=== PATIENT | female | born 1970 | race Caucasian/White ===

== ENCOUNTER 2021-08-10 07:22 | Inpatient (IN) | payer BC ==
[2021-08-10] MEDS ORDERED: Acetaminophen 325 MG Tab PO PRN (09:35)
[2021-08-10] MEDS ORDERED: Ondansetron 4 MG/2 ML SDV IVPUSH PRN (09:35)
[2021-08-10] MEDS ORDERED: Sodium Chloride 0.9% 10 ML Syringe FLUSH PRN (09:35)
[2021-08-10 10:47] LABS: HEMOGLOBIN A1C 6.1 % (4.5-6.2)
[2021-08-10] MEDS ORDERED: MVI, Adult with Vitamin K 10 ML, Thiamine 200 MG, Zinc/Copper/Manganese/Selenium 1 ML i... IV ONE ×4 (11:00)
[2021-08-10] MEDS: Pantoprazole 40 MG Vial IVPUSH SCH (11:09)
[2021-08-10] MEDS: HYDROmorphone 0.5 MG/0.5 ML Syringe IVPUSH PRN ×4 (11:19→20:53)
[2021-08-10] MEDS: Dextrose 5%-Lactated Ringers 1,000 ML IV SCH (13:34)
[2021-08-11] MEDS: Dextrose 5%-Lactated Ringers 1,000 ML IV SCH ×2 (00:29→21:18)
[2021-08-11] MEDS: HYDROmorphone 0.5 MG/0.5 ML Syringe IVPUSH PRN ×2 (00:34→07:25)
[2021-08-11] MEDS ORDERED: Bupivacaine 0.5% 50 ML MDV ONE ×2 (06:57→06:58)
[2021-08-11] MEDS ORDERED: Meropenem 500 MG SDV ONE (06:57)
[2021-08-11] MEDS ORDERED: Lidocaine 1% with EPINEPHrine 1:100,000 50 ML MDV ONE (06:58)
[2021-08-11] MEDS ORDERED: Propofol 200 MG/20 ML SDV ONE (07:59)
[2021-08-11] MEDS ORDERED: Succinylcholine 200 MG/10 ML MDV ONE (07:59)
[2021-08-11] MEDS ORDERED: Rocuronium 50 MG/5 ML Vial ONE (07:59)
[2021-08-11] MEDS ORDERED: Ondansetron 4 MG/2 ML SDV ONE (07:59)
[2021-08-11] MEDS ORDERED: Glycopyrrolate 0.2 MG/ML 5 ML MDV ONE (07:59)
[2021-08-11] MEDS ORDERED: Neostigmine Methylsulfate 1 MG/ML 5 ML Syringe ONE (07:59)
[2021-08-11] MEDS ORDERED: Dexamethasone 4 MG/ML SDV ONE (07:59)
[2021-08-11] MEDS ORDERED: fentaNYL 250 MCG/5 ML SDV ONE ×2 (08:00→10:13)
[2021-08-11] MEDS: Pantoprazole 40 MG Vial IVPUSH SCH (09:49)
[2021-08-11] MEDS ORDERED: Ropivacaine 44 ML, dexAMETHasone 8 MG, EPINEPHrine 0.4 MG, Sodium Chloride 0.9% 33.6 ML NERVRT SCH ×4 (10:00)
[2021-08-11] MEDS ORDERED: cefOXitin 2 GM in Sodium Chloride 0.9% 50 ML IV ONE (10:00)
[2021-08-11] MEDS ORDERED: Ketamine 17 MG in Sodium Chloride 0.9% 19.83 ML IV SCH (10:00)
[2021-08-11] MEDS ORDERED: Ketamine 500 MG/5 ML MDV IV SCH ×3 (10:00)
[2021-08-11] MEDS ORDERED: diphenhydrAMINE 25 MG Cap PO PRN (11:12)
[2021-08-11] MEDS ORDERED: Ondansetron 4 MG/2 ML SDV IVPUSH PRN ×2 (11:12→13:00)
[2021-08-11] MEDS ORDERED: diphenhydrAMINE 50 MG/ML SDV IVPUSH PRN (11:12)
[2021-08-11] MEDS ORDERED: Naloxone 0.4 MG/ML SDV IVPUSH PRN (11:12)
[2021-08-11] MEDS: HYDROmorphone/Normal Saline 6 MG/30 ML PCA Vial IV PRN ×2 (11:28→23:11)
[2021-08-11] MEDS ORDERED: Lactated Ringers 1,000 ML ONE (11:35)
[2021-08-11] MEDS ORDERED: Naloxone 0.4 MG/ML SDV IV PRN (12:00)
[2021-08-11] MEDS ORDERED: Cyclobenzaprine 10 MG Tab PO PRN (12:51)
[2021-08-11] MEDS ORDERED: Labetalol 20 MG/4 ML Syringe IVPUSH PRN (13:00)
[2021-08-11] MEDS ORDERED: Metoclopramide 10 MG/2 ML SDV IVPUSH PRN (13:00)
[2021-08-11] MEDS ORDERED: hydrOXYzine HCL 100 MG/2 ML SDV IM PRN (13:00)
[2021-08-11] MEDS ORDERED: Acetaminophen 500 MG Tab PO PRN (13:00)
[2021-08-11] MEDS: Sodium Ferric Gluconate Cmplex 250 MG in Sodium Chloride 0.9% 100 ML IV SCH (14:34)
[2021-08-11] MEDS: Acetaminophen 500 MG Tab PO SCH ×2 (14:43→21:49)
[2021-08-11] MEDS: cefOXitin 2 GM in Sodium Chloride 0.9% 50 ML IV SCH ×2 (16:49→21:48)
[2021-08-11] MEDS ORDERED: MVI, Adult with Vitamin K 10 ML, Thiamine 200 MG, Zinc/Copper/Manganese/Selenium 1 ML i... IV SCH ×4 (18:00)
[2021-08-12] MEDS: Dextrose 5%-Lactated Ringers 1,000 ML IV SCH ×2 (03:36→14:23)
[2021-08-12] MEDS ORDERED: Iopamidol 612 MG/ML 50 ML SDV PO STA (03:39)
[2021-08-12] MEDS: cefOXitin 2 GM in Sodium Chloride 0.9% 50 ML IV SCH ×4 (03:40→21:06)
[2021-08-12] MEDS: Acetaminophen 500 MG Tab PO SCH ×3 (05:01→21:02)
[2021-08-12] MEDS: Docusate Sodium 100 MG Cap PO SCH ×2 (09:34→21:02)
[2021-08-12] MEDS: Bisacodyl 5 MG Tab PO SCH ×2 (09:34→21:02)
[2021-08-12] MEDS: Pantoprazole 40 MG Vial IVPUSH SCH (09:35)
[2021-08-12] MEDS: Celecoxib 200 MG Cap PO SCH ×2 (09:35→21:02)
[2021-08-12] MEDS: Magnesium Sulfate/Water 2 GM in Premix Bag 1 BAG IV SCH ×3 (10:31→21:49)
[2021-08-12] MEDS: HYDROmorphone/Normal Saline 6 MG/30 ML PCA Vial IV PRN (12:44)
[2021-08-12] MEDS: Sodium Ferric Gluconate Cmplex 250 MG in Sodium Chloride 0.9% 100 ML IV SCH (14:39)
[2021-08-12] MEDS: diphenhydrAMINE 50 MG/ML SDV IVPUSH PRN ×2 (17:17→21:49)
[2021-08-12] MEDS ORDERED: MVI, Adult with Vitamin K 10 ML, Thiamine 200 MG, Zinc/Copper/Manganese/Selenium 1 ML i... IV SCH ×4 (18:00)
[2021-08-13] MEDS: cefOXitin 2 GM in Sodium Chloride 0.9% 50 ML IV SCH ×2 (04:11→10:07)
[2021-08-13] MEDS: Magnesium Sulfate/Water 2 GM in Premix Bag 1 BAG IV SCH ×3 (04:53→17:38)
[2021-08-13] MEDS: Dextrose 5%-Lactated Ringers 1,000 ML IV SCH (04:56)
[2021-08-13] MEDS: Acetaminophen 500 MG Tab PO SCH ×3 (05:01→21:44)
[2021-08-13] MEDS: HYDROmorphone 2 MG Tab PO PRN ×3 (08:07→21:45)
[2021-08-13] MEDS: Bisacodyl 5 MG Tab PO SCH ×2 (08:10→20:07)
[2021-08-13] MEDS: Celecoxib 200 MG Cap PO SCH ×2 (08:10→20:07)
[2021-08-13] MEDS: Docusate Sodium 100 MG Cap PO SCH ×2 (08:10→20:07)
[2021-08-13] MEDS: Pantoprazole 40 MG Vial IVPUSH SCH (08:11)
[2021-08-13] MEDS ORDERED: Cyanocobalamin (Vitamin B12) 1,000 MCG/ML SDV IM ONE (09:00)
[2021-08-13] MEDS ORDERED: Sodium Ferric Gluconate Cmplex 250 MG in Sodium Chloride 0.9% 100 ML IV SCH (10:00)
[2021-08-13] MEDS: Magnesium Hydroxide 400 MG/5 ML Susp 30 ML Cup PO SCH (10:08)
[2021-08-14] MEDS: Acetaminophen 500 MG Tab PO SCH (05:16)
[2021-08-14] MEDS: Celecoxib 200 MG Cap PO SCH (09:09)
[2021-08-14] MEDS: Bisacodyl 5 MG Tab PO SCH (09:09)
[2021-08-14] MEDS: Docusate Sodium 100 MG Cap PO SCH (09:11)
[2021-08-14] MEDS: Pantoprazole 40 MG Vial IVPUSH SCH (09:12)
[2021-08-14] MEDS: Magnesium Hydroxide 400 MG/5 ML Susp 30 ML Cup PO SCH (09:13)
== END 2021-08-14 09:15 | disposition home or self-care (01) | DRG 221 ==
LOC: JP.2SS 08:34
PROVIDERS: ADMIT Surgery; ATTEND Surgery
PROC: 0DBF0ZZ Excision of Right Large Intestine, Open Approach (ICD-10-PCS; principal; 2021-08-11)
PROC: 0WUF0JZ Supplement Abdominal Wall with Synthetic Substitute, Open Approach (ICD-10-PCS; 2021-08-11)
PROC: 3E0M05Z Introduction of Adhesion Barrier into Peritoneal Cavity, Open Approach (ICD-10-PCS; 2021-08-11)
PROC: 0DS80ZZ Reposition Small Intestine, Open Approach (ICD-10-PCS; 2021-08-11)
DX: K95.89 Other complications of other bariatric procedure (principal); K56.2 Volvulus; K55.039 Acute (reversible) ischemia of large intestine, extent unspecified; K43.0 Incisional hernia with obstruction, without gangrene; Z98.84 Bariatric surgery status
CPT/HCPCS: 36415; 74019; 74019-26; 74240; 74240-26; 80053; 82306; 82525; 82607; 82728; 82746; 83036; 83735; 83880; 84100; 84590; 84630; 85025; 88307; A9270-GY; C9113; J0171; J0330; J0694; J1100; J1170; J1200; J2020; J2185; J2405; J2704; J2710; J2795; J2916; J3010; J3411; J3420; J3475; J3490; J7120; J7121; Q9967

== ENCOUNTER 2021-10-16 08:52 | Inpatient (IN) | payer BC ==
[~2021-10-16 08:52] MED LIST: Bupivacaine 0.5% 30 ML SDV ONE; Dextrose 5%-Lactated Ringers 1,000 ML IV SCH; Lidocaine 1% with EPINEPHrine 1:100,000 50 ML MDV ONE; Meropenem 500 MG SDV ONE
[2021-10-16] MEDS ORDERED: Acetaminophen 500 MG Tab PO ONE (09:00)
[2021-10-16] MEDS ORDERED: cefOXitin 2 GM in Sodium Chloride 0.9% 50 ML IV ONE ×2 (09:00→09:15)
[2021-10-16] MEDS ORDERED: cefOXitin 2 GM in Sodium Chloride 0.9% 100 ML IV ONE (09:00)
[2021-10-16] MEDS ORDERED: Ketamine 17 MG in Sodium Chloride 0.9% 19.83 ML IV SCH (09:15)
[2021-10-16] MEDS ORDERED: Ketamine 500 MG/5 ML MDV IV SCH (09:15)
[2021-10-16 09:41] LABS: ESTIMATED GFR 89 mL/min (>60)
[2021-10-16] MEDS ORDERED: fentaNYL 250 MCG/5 ML SDV ONE ×2 (11:00→13:25)
[2021-10-16] MEDS ORDERED: Dexamethasone 4 MG/ML SDV ONE (11:01)
[2021-10-16] MEDS ORDERED: Rocuronium 50 MG/5 ML Vial ONE (11:01)
[2021-10-16] MEDS ORDERED: Glycopyrrolate 0.2 MG/ML 5 ML MDV ONE (11:01)
[2021-10-16] MEDS ORDERED: Neostigmine Methylsulfate 1 MG/ML 5 ML Syringe ONE (11:01)
[2021-10-16] MEDS ORDERED: Propofol 200 MG/20 ML SDV ONE (11:01)
[2021-10-16] MEDS ORDERED: Ondansetron 4 MG/2 ML SDV ONE (11:01)
[2021-10-16] MEDS ORDERED: Succinylcholine 200 MG/10 ML MDV ONE (11:01)
[2021-10-16] MEDS ORDERED: Lactated Ringers 1,000 ML ONE (13:51)
[2021-10-16] MEDS ORDERED: fentaNYL 100 MCG/2 ML SDV ONE (14:31)
[2021-10-16] MEDS ORDERED: diphenhydrAMINE 50 MG/ML SDV IVPUSH PRN ×2 (14:40→16:00)
[2021-10-16] MEDS ORDERED: Ondansetron 4 MG/2 ML SDV IVPUSH PRN ×2 (14:40→16:00)
[2021-10-16] MEDS ORDERED: Naloxone 0.4 MG/ML SDV IVPUSH PRN (14:40)
[2021-10-16] MEDS ORDERED: diphenhydrAMINE 25 MG Cap PO PRN (14:40)
[2021-10-16] MEDS: HYDROmorphone/Normal Saline 6 MG/30 ML PCA Vial IV PRN (14:48)
[2021-10-16] MEDS ORDERED: Naloxone 0.4 MG/ML SDV IV PRN (15:00)
[2021-10-16] MEDS ORDERED: Cyclobenzaprine 10 MG Tab PO PRN (15:33)
[2021-10-16] MEDS ORDERED: Metoclopramide 10 MG/2 ML SDV IVPUSH PRN (16:00)
[2021-10-16] MEDS ORDERED: hydrOXYzine HCL 100 MG/2 ML SDV IM PRN (16:00)
[2021-10-16] MEDS ORDERED: Acetaminophen 500 MG Tab PO PRN (16:00)
[2021-10-16] MEDS ORDERED: Labetalol 20 MG/4 ML Syringe IVPUSH PRN (16:00)
[2021-10-16] MEDS: MVI, Adult with Vitamin K 10 ML, Thiamine 200 MG, Zinc/Copper/Manganese/Selenium 1 ML i... IV SCH ×4 (17:17)
[2021-10-16] MEDS: Acetaminophen 500 MG Tab PO SCH ×2 (17:17→23:17)
[2021-10-16] MEDS: Pantoprazole 40 MG Vial IVPUSH SCH (17:17)
[2021-10-16] MEDS: cefOXitin 2 GM in Sodium Chloride 0.9% 50 ML IV SCH (18:03)
[2021-10-16] MEDS: Dextrose 5%-Lactated Ringers 1,000 ML IV SCH (23:29)
[2021-10-17] MEDS: cefOXitin 2 GM in Sodium Chloride 0.9% 50 ML IV SCH ×4 (00:49→17:41)
[2021-10-17] MEDS: Dextrose 5%-Lactated Ringers 1,000 ML IV SCH ×2 (05:34→11:59)
[2021-10-17] MEDS: HYDROmorphone/Normal Saline 6 MG/30 ML PCA Vial IV PRN (06:14)
[2021-10-17] MEDS: Acetaminophen 500 MG Tab PO SCH ×2 (08:24→15:11)
[2021-10-17] MEDS: Celecoxib 200 MG Cap PO SCH ×2 (08:25→20:22)
[2021-10-17] MEDS: Bisacodyl 5 MG Tab PO SCH ×2 (10:24→20:22)
[2021-10-17] MEDS: Docusate Sodium 100 MG Cap PO SCH ×2 (10:24→20:22)
[2021-10-17] MEDS: MVI, Adult with Vitamin K 10 ML, Thiamine 200 MG, Zinc/Copper/Manganese/Selenium 1 ML i... IV SCH ×4 (15:10)
[2021-10-17] MEDS: Pantoprazole 40 MG Vial IVPUSH SCH (15:11)
[2021-10-18] MEDS: Acetaminophen 500 MG Tab PO SCH ×3 (00:10→16:48)
[2021-10-18] MEDS: cefOXitin 2 GM in Sodium Chloride 0.9% 50 ML IV SCH (00:11)
[2021-10-18] MEDS: Dextrose 5%-Lactated Ringers 1,000 ML IV SCH (03:02)
[2021-10-18] MEDS ORDERED: Bupivacaine 0.5% 30 ML SDV ONE (06:42)
[2021-10-18] MEDS ORDERED: Lidocaine 1% with EPINEPHrine 1:100,000 50 ML MDV ONE (06:42)
[2021-10-18] MEDS ORDERED: Meropenem 500 MG SDV ONE (06:51)
[2021-10-18] MEDS ORDERED: Propofol 200 MG/20 ML SDV ONE ×3 (06:55→08:04)
[2021-10-18] MEDS ORDERED: Midazolam 1 MG/ML 2 ML SDV ONE (07:15)
[2021-10-18] MEDS ORDERED: fentaNYL 100 MCG/2 ML SDV ONE (07:16)
[2021-10-18] MEDS ORDERED: Ropivacaine 40 ML, dexAMETHasone 8 MG, EPINEPHrine 0.4 MG, Sodium Chloride 0.9% 37.6 ML NERVRT SCH ×4 (07:30)
[2021-10-18] MEDS ORDERED: Cyanocobalamin (Vitamin B12) 1,000 MCG/ML SDV IM ONE (09:00)
[2021-10-18] MEDS: Celecoxib 200 MG Cap PO SCH ×2 (09:16→20:54)
[2021-10-18] MEDS: Bisacodyl 5 MG Tab PO SCH (09:16)
[2021-10-18] MEDS: Docusate Sodium 100 MG Cap PO SCH (09:16)
[2021-10-18] MEDS: Pantoprazole 40 MG Tab.CR PO SCH (12:57)
[2021-10-18] MEDS ORDERED: oxyCODONE 5 MG Tab PO PRN (13:12)
[2021-10-19] MEDS: Acetaminophen 500 MG Tab PO SCH ×2 (00:39→07:40)
[2021-10-19] MEDS: Pantoprazole 40 MG Tab.CR PO SCH (07:40)
[2021-10-19] MEDS: Celecoxib 200 MG Cap PO SCH (09:38)
== END 2021-10-19 10:05 | disposition home or self-care (01) | DRG 221 ==
LOC: JP.SDSSCHI 08:52 → JP.SDS 08:53 → EDSTATUS 09:30 → JP.MS 16:15
PROVIDERS: ADMIT Surgery; ATTEND Surgery
PROC: 0DS80ZZ Reposition Small Intestine, Open Approach (ICD-10-PCS; principal; 2021-10-16)
PROC: 0DBP0ZZ Excision of Rectum, Open Approach (ICD-10-PCS; 2021-10-16)
PROC: 0DBN0ZZ Excision of Sigmoid Colon, Open Approach (ICD-10-PCS; 2021-10-16)
PROC: 0DBW0ZZ Excision of Peritoneum, Open Approach (ICD-10-PCS; 2021-10-16)
PROC: 3E0M05Z Introduction of Adhesion Barrier into Peritoneal Cavity, Open Approach (ICD-10-PCS; 2021-10-16)
PROC: 0WQF0ZZ Repair Abdominal Wall, Open Approach (ICD-10-PCS; 2021-10-18)
DX: K95.89 Other complications of other bariatric procedure (principal); E53.9 Vitamin B deficiency, unspecified; K56.2 Volvulus; K91.2 Postsurgical malabsorption, not elsewhere classified; E53.8 Deficiency of other specified B group vitamins; E55.9 Vitamin D deficiency, unspecified; E60 Dietary zinc deficiency; E50.9 Vitamin A deficiency, unspecified; K46.9 Unspecified abdominal hernia without obstruction or gangrene; Z98.84 Bariatric surgery status; Q43.8 Other specified congenital malformations of intestine
CPT/HCPCS: 36415; 80053; 83735; 84100; 85027; 88305; 88307; A9270-GY; C9113; J0171; J0330; J0694; J1100; J1170; J2020; J2185; J2250; J2405; J2704; J2710; J2795; J3010; J3411; J3420; J3490; J7120; J7121